=== PATIENT | male | born 1950 ===

== ENCOUNTER 2021-04-23 15:04 | Emergency (ER) | payer SELFPAY ==
[~2021-04-23] VITALS: Ht 170.2 cm; Wt 59.0 kg
[2021-04-23] MEDS: ACETAMINOPHEN 325MG TABLET PO ONE (15:26)
[2021-04-23] MEDS ORDERED: TOPUD MT (16:06)
[2021-04-23] MEDS ORDERED: LIDO700A15 TP (16:06)
[2021-04-23 16:28] VITALS: BP 133/88
== END 2021-04-23 16:29 | disposition home or self-care (01) ==
LOC: ER 15:04
DX: S42.031A Displaced fracture of lateral end of right clavicle, initial encounter for closed fracture (principal); W18.30XA Fall on same level, unspecified, initial encounter; Y93.89 Activity, other specified; Y92.89 Other specified places as the place of occurrence of the external cause; Y99.8 Other external cause status
CPT/HCPCS: 73030; 99283; A4565